=== PATIENT | female | born 1975 | race Caucasian/White ===

== ENCOUNTER 2023-02-22 08:43 | Day surgery (SDC) | payer OTHER, SELFPAY ==
[2023-02-22] VITALS (24 sets, daily range): BP systolic 63–121; BP diastolic 41–74; PULSE 80–103; RESP 16–28; TEMP 36.4–36.9; O2SAT 91–100; BMI 32.3
[2023-02-22] MEDS: LACTATED RINGERS 1000 ML 1,000 ML 100 ML IV ×2 (08:50→10:50)
[2023-02-22 09:20] LABS: Ur HCG Qualitative* Negative (Negative)
[2023-02-22] MEDS: SODIUM CHLORIDE 0.9 % (FLUSH) 10 ML SYRINGE IVF (09:25)
[2023-02-22] MEDS: SCOPOLAMINE 1 MG/3 DAY PATCH 1 PATCH TRANSDERMA (10:38)
--- NOTE | 2023-02-22 10:39 | W.ANESCHARGE ---
Anesthesia Charges Start Date/Time Anesthesia Start Date: 02/22/23 Anesthesia Start Time: 10:50 Stop Date/Time Anesthesia Stop Date: 02/22/23 Anesthesia Stop Time: 12:20
[2023-02-22] MEDS: PIPERACILLIN/TAZOBACTAM 3.375 GM INJ IVPB (11:15)
[2023-02-22] MEDS: BUPIVACAINE 0.25% 30 ML INJECTION (11:57)
--- NOTE | 2023-02-22 12:06 | PM.GSPRC ---
Operative Note Pre-op diagnosis: Advanced polyp of the appendiceal orifice Post-op diagnosis: Same Type of Procedure: Laparoscopic appendectomy with partial cecectomy Indications: Patient is a 47-year-old female who underwent a screening colonoscopy. During that examination a large polyp was noted to be just adjacent to the appendiceal orifice. This was unable to be removed endoscopically with recommendations for surgical intervention. Risks and benefits of laparoscopic appendectomy with partial diskectomy were discussed at length with the patient. Risks included but was not limited to: Bleeding, infection, risk of damage to surrounding structures, possible need for additional procedures, possible need to convert to an open operation and postoperative complications such as pneumonia, pulmonary emboli or [place]. All questions and concerns were addressed with the patient agreeing to proceed. Procedure Description: After discussing the risks and benefits of the procedure, the patient signed informed consent.? The operative site was marked and the patient was brought to the operating room and placed on the operating table in supine position.? Care was taken to pad the patient's pressure points.?? The patient was then intubated by anesthesia.?? The operative site was then prepped and draped in the usual sterile fashion.? A time-out was then performed. Entrance to the abdomen was obtained via a 5 mm optical trocar in the left upper quadrant. The abdomen was insufflated and briefly surveyed for any signs of injury. There were none. A 12 mm port was placed lateral to the umbilicus as well as a 5 mm port in the left lower quadrant under direct vision. The patient was then placed in Trendelenburg position with the right side up. The small bowel was gently moved out of the way and the appendix was in view. A small portion of the omentum was scarred to the right lower quadrant and area of previous hernia repair. This was freed with hook cautery. The appendix was then easily visualized. This was grasped and pulled into view. A mesenteric window was created between the base of the appendix and the mesoappendix. Two 30mm vascular load staplers were then used to take the mesoappendix. The lateral attachments of the cecum were carefully freed with hook cautery. Once fully mobilized several 45 mm purple bowel staple loads were used to take both the appendix and a portion of the cecum. The staple lines were inspected for bleeding. There was none. The appendix was then removed from the abdomen using an Endo-Catch bag. The specimen was sent to pathology, who reviewed the fresh specimen, identified the polyp and ensured negative margins. A piece of omentum was then placed over the cecum. The 12 mm port site fascia was closed with 0 Vicryl via the afshan kenneth. All other ports were removed under direct visualization. The skin was then closed with absorbable subcuticular suture. Sterile dressings were then applied. Instrument sponge and needle counts were correct at the end of the case. The patient was then woken and transported to the PACU in stable condition. ? The patient was then woken and transported to the recovery area in stable condition. ? The patient tolerated the procedure well. Anesthesia: GETA Surgeon: Cassidy Colby MD Estimated blood loss (mL): 5 Specimen: Appendix Condition: stable Disposition: PACU Date of procedure: 02/22/23
--- NOTE | 2023-02-22 12:38 | W.ANESCHARGE ---
Anesthesia Charges Start Date/Time Anesthesia Start Date: 02/22/23 Anesthesia Start Time: 10:50 Stop Date/Time Anesthesia Stop Date: 02/22/23 Anesthesia Stop Time: 12:20
--- NOTE | 2023-02-22 13:04 | SUR.PHASEI ---
patient met discharge criteria per anesthesia
[2023-02-22] MEDS: HYDROCODONE-ACETAMIN 5-325 MG 1 TAB PO (14:00)
--- NOTE | 2023-02-22 14:37 | SUR.PHASEII ---
LOPEZ Hoyos in to see patient. Patient preferred to wait until 2:30 to get up and change. Patient states feeling warm, which is similar to her previous pattern of nausea and vomiting after surgery.
[2023-02-22] MEDS: METOCLOPRAMIDE HCL 5 MG/ML INJ 10 MG IVP (14:48)
== END 2023-02-22 15:05 | disposition home or self-care (01) ==
PROVIDERS: PCP Family Medicine; Visit Provider Surgery
PROC: 0DTJ4ZZ Resection of Appendix, Percutaneous Endoscopic Approach (ICD-10-PCS; CPT 44970; principal; 2023-02-22 10:00)
DX: D12.1 Benign neoplasm of appendix (principal)
CPT/HCPCS: 44970; 44238; 00840; 81025; 88309; A9270; J0330; J0665; J1100; J1885; J2250; J2405; J2543; J2704; J2765; J3010; J7120